=== PATIENT | female | born 1945 | race Caucasian/White ===

== ENCOUNTER 2017-10-13 10:27 | Inpatient (IN) | payer MEDICARE ==
[~2017-10-13] VITALS: Ht 167.6 cm; Wt 71.8 kg
[~2017-10-13 10:27] MED LIST: ALPRAZOLAM1 MG PO; ALPRAZOLAM2 MG PO; AMLODIPINE BESYL5 MG PO; BUSPIRONE HCL10 MG PO; CYANOCOBAL1000 MCG/M IM; DULOXETINE HCL20 MG PO; DULOXETINE HCL30 MG PO; FOLIC ACID0.4 MG PO; FUROSEMIDE40 MG PO; HYDROCHLOROTHIA25 MG PO; HYDROCODONE-IB1 EACH PO; KEFLEX500 MG PO; KLOR-CON 1010 MEQ PO; LEVOFLOXACIN500 MG PO; LEVOTHYROXINE125 MCG PO; MAGNESIUM250 MG PO; MAXZIDE 37.5 MG-1 EA PO; MELATONIN10 M2 PO; OMEPRAZOLE20 MG PO; OXYCODONE HCL15 MG PO; SOMA350 MG PO; SUCRALFATE1 GM PO; TRAZODONE HCL50 MG PO; TRIAMTERENE-HC1 EAC1 PO; VICOPROFEN 2001 EACH PO; VITAMIN D35000 UNI1 PO
[2017-10-13] MEDS ORDERED: CYANOCOBAL1000 MCG/M IM (10:49)
--- NOTE | 2017-10-13 15:08 | NUR ---
PT CAME TO THE UNIT VIA STREACHER AND ONCE IN THE ROOM SHE WAS UP AMBULATING TO THE BATHROOM. PT VOIDED AND BACK TO BED ASSESSMENT COMPLETED. PT C/O PAIN MEDICATED FOR PAIN. PT TRYING TO SLEEP.
--- NOTE | 2017-10-13 15:48 | NUR ---
PT UP TO THE BATHROOM TO VOID, SHE DID NOT USE HER CALL LIGHT. SHE PULLED ALL OF THE MONITORS LEADS OFF. HER CALL LIGHT IS WITHIN IN REACH "I JUST HAD TO USE THE BATHROOMA AND I DID NOT KNOW WHERE I WAS" . THEREFORE CALL WITHIN REACH, AND BED ALARM ON AT THIS TIME. ALL LEADS AND MONITOR PLACED BACK ONTO THE PT AT THIS TIME.
--- NOTE | 2017-10-13 16:39 | NUR ---
PT UP TO THE BEDSIDE COMMODE VOIDED AND BACK TO BED. PT IS ON ROOM AIR AT THIS TIME. WITH A SPO2 96%.CALL LIGHT INPLACE, BED ALARM ON ALSO AT THIS TIME.
--- NOTE | 2017-10-13 17:45 | NUR ---
PT UP TO THE BS COMMODE VOIDED AND BACK TO BED AT THIS TIME. SHE IS SITTING AT THE EDGE OF THE BED EATTING DINNER AT THIS TIME. PT IS AOX3 AND HAS BEEN USING HER CALL LIGHT DIRECTED. SIDE RAILS UP AND BED IN LOW POSITION.
--- NOTE | 2017-10-13 19:30 | NUR ---
PT SHIFT REPORT RECIVED FROM DAY SHIFT RN. PT RESTING IN BED AT THIS TIME AND CALLS APPROPRIATELY. NO OTHER ISSUES AT THIS TIME.
--- NOTE | 2017-10-13 19:30 | NUR ---
PT CALLED TO GET UP TO [place]. PT WAS ABLE TO INDEPENDENTLY STAND AND TRANSFER WITH NO ISSUES. PT VOIDED YELLOW URINE. PT BACK TO BED WITH NO ISSUES.
--- NOTE | 2017-10-13 19:32 | EKG ---
[facility] [address] [facility] [address] [place] [address] Signed Sinus rhythm with First Degree Heart Block Left ventricular hypertrophy with repolarization abnormality Abnormal ECG When compared with ECG of 22-FEB-2017 08:23, Current undetermined rhythm precludes rhythm comparison, needs review Confirmed by YAIMA BARRAZA MD ([id number]) on 10/13/2017 7:32:45 PM Electronically Signed By: YAIMA BARRAZA MD 10/13/17 193 PATIENT NAME: LIVAN KRAMER Electrocardiogram DATE OF : 47 PHYSICIAN: YAIMA BARRAZA MD REPORT #: [id number] REPORT IS CONFIDENTIAL AND NOT TO BE RELEASED WITHOUT AUTHORIZATION
--- NOTE | 2017-10-13 20:00 | NUR ---
PT SHIFT ASSESSMENT COMPLETED. PT RESTING IN BED. BREATH SOUNDS CLEAR. PT IS ON 2L AT THIS TIME WITH SPO2 97-100%. WILL DECREASE OXYGEN TOLERATED. BOWEL TONES ACTIVE. PT GETS FIGITY WITH CORDS. NO OTHER ISSUES AT THIS TIME. WILL CONTINUE TO CLOSELY MONITOR.
--- NOTE | 2017-10-13 20:35 | NUR ---
PT UPDATED ON PLAN OF CARE FOR THIS [place]. PT IS AWARE SHE WILL BE TRANSFERING TO [facility]. PT IS AGREEABLE TO THIS PLAN. PT STATES SHE FEELS MUCH BETTER AND DOES NOT FEEL SHE REALLY NEEDS TO BE IN THE HOSPITAL, BUT PT IS AGREEABLE TO STAYING FOR CONTINUED TREATMENT. EDUCATED PT WHY SHE IS IN [facility]. PT HAS CALL LIGHT IN HAND. WILL CONTINUE TO MONITOR.
--- NOTE | 2017-10-13 21:00 | NUR ---
PT REPORT GIVEN TO [facility] CHARGE NURSE. PT BELONGINGS GATHERED. PT WHEELED OVER IN CHAIR BY TOPLINE BEADING MACHINE TENDER. REMAINING BELONINGS TAKEN OVER TO PT. PT IS NOW IN ROOM 125. PT DENIES ANY OTHER QUESTIONS FOR THIS RN.
--- NOTE | 2017-10-13 22:14 | NUR ---
RECEIVED REPORT FROM MOISÉS HANNAH. PT IS COMFORTABLE IN BED. DROPLET PERCAUTIONS IN PLACE. UNLABORED AND EQUAL BREATHING. PT REPORTS 5/10 PAIN. PAIN MEDICATION GIVEN.
--- NOTE | 2017-10-13 23:38 | NUR ---
PT VERY ANXIOUS OVER AND HER DOG BEING HOME ALONE. HAS "ALZHEIMERS, AND IS INCONTINENT OF BOWELS, HE STARTS HIS DAY AT 2200, GETS READY AND SITS IN FRONT OF COUCH" PT STATES. PT REASSURED THAT SOMEBODY WILL GO AND CHECK ON . CLIENT HAS ALREADY RECEIVED ALPRAZOLAM PRN/ANXIETY CLIENT STATES THAT SHE HAS NOBODY TO CHECK ON OR COME TO STAY WITH HIM PT AGREES TO HAVE [employer] DO A WELFARE CHECK ON HER ----[employer] DISPATCH NOTIFIED VIA [employer] AT [phone] ABOUT DOING A WELFARE CHECK- {BUT PLEASE NOT BREAK THE DOOR-(PTS REQUESTS)} ASSISTANT FRONT DESK MANAGER AND PRIMARY RN NOTIFIED. WILL NOTIFY MD IF PT HAS ANOTHER ANXIETY ATTACK AND IS DIFFICULT TO COMFORT AND CONTINUES TO HAVE INCREASED CONCERSN ABOUT HUSBANDS BEING ALONE AT HOME.
--- NOTE | 2017-10-14 00:20 | NUR ---
PT INFORMED OF [employer] DEPARTMENT WELFARE CHECK " NO LIGHT ON WINDOW, DOG BARKING [employer] OFFICER KNOCKED ON DOOR, NO ANSWER, RED SUV IN DRIVEWAY, WILL DRIVE BY THAT STREET OFTEN TONIGHT". THIS NURSE SPEND CLOSE TO 25 MINTUES TALKING WITH PT AND REASSURING HER AND HELPING HER DECREASE HER ANXIETY, CALMER NOW. WILL CONTINUE TO OBSERVE AND NOTIFY MD IF FURTHER C/O ANXIETY. BED ALARM ON. PT INDEPENDENT.
--- NOTE | 2017-10-14 01:30 | NUR ---
PT REQUESTED IV REMOVAL. GAVE LOTION AND REMOVED SOME EXCESS TAPE. REPORTS PAIN 7/10. STATED PAIN MEDICATION DID NOT HELP WITH PAIN. PT IS ANXIOUS AND REPORTS SHE IS UNABLE TO SLEEP. BED ALARM IS SET. PT IS SETTING BED ALARM FREQUENTLY. ROCKING BACK AND FORTH. VERY ANXIOUS. WILL INFORM HOSPITALIST.
--- NOTE | 2017-10-14 01:34 | NUR ---
PT HAS SET BED ALARM OFF SEVERAL TIMES TONIGHT. PT ANXIOUS, CRYING, TEARFUL, YELLING OUT. PT RATING PAIN AT 7/10, STATES "THAT PILL YOU GAVE ME HAS NOT TOUCHED MY PAIN, MY BACK HURTS SO BAD." PT EDUCATED ON SAFETY AND FALL PREVENTION. GRADUATE RECRUITER ASSSITED PT UP TO BATHROOM TO VOID.
--- NOTE | 2017-10-14 01:41 | NUR ---
PT REPORTS 04/12 PAIN. GAVE NORCO .
--- NOTE | 2017-10-14 02:07 | NUR ---
PATIENT FINALLY ASLEEP. 0200 VS BEING POSTPONED UNTIL PATIENT WAKES UP, RN AGREES.
--- NOTE | 2017-10-14 03:07 | NUR ---
PATIENT CALLED AND ALERTED STAFF THAT SHE WAS SOB. PATIENT PLACED ON 2L VIA NC. PATIENTS VITALS TAKEN AND RECORDED. PATIENTS VITALS STABLE. PATIENT TAUGHT PURSED LIP BREATHING. PATIENT DEMONSTARTED PURSED LIPPED BREATHING. PATIENT DENIES ANY SOB AFTER INTERVENTIONS. PATIENT IS NOW LYING BACK IN BED RESTING. PATIENT IS REQUESTING TO STAY ON 2L VIA NC. PATIENTS OXYGEN SATURATION IS ON 97%. PATIENT DENIES ANY FURTHER NEEDS CALL LIGHT IN REACH.
--- NOTE | 2017-10-14 03:17 | NUR ---
I WAS ALERTED BY KRISTEN HANNAH THAT THE PT WAS COMPLAINING OF SOB. WHEN I ARRIVED TO THE PT'S ROOM SHE WAS SITTING UP IN BED HYPERVENTILATING. HER RESPIRATIONS WERE 28 UPON ENTERING THE ROOM. KRISTEN DEMONSTRATED PURSED LIP BREATHING EXCERSISES. WHILE I TOOK VITAL SIGNS. ALL OTHER VITAL SIGNS WERE NORMAL. WE PLACED THE PT ON 2L. PT O2 SATS WERE @ 94 WHEN WE ENTERED THE ROOM AND WENT UP TO 97 WITH THE O2. THE PT CALMED DOWN AND RESPIRATIONS DECRESSED TO 19. PT IS NOW IN BED TRYING TO GO TO SLEEP.
--- NOTE | 2017-10-14 04:08 | NUR ---
PT APPEARS TO BE SLEEPING. RR IS WNL AND UNLABORED. O2 SAT IS 98% ON CONTINUE PULSE OX. WILL CONTINUE TO MONITOR. CALL LIGHT WITHIN REACH AND BED ALARM ON.
--- NOTE | 2017-10-14 04:47 | NUR ---
PT IV HAS A SCANT AMOUNT OF BLOOD UNDER THE DRESSING. PT WOULD LIKE IV REMOVED. EDUCATED ON NEED. DID NOT REPLACE DRESSING AT THIS TIME DUE TO PT'S ANXIETY. WILL READRESS AT A LATER TIME.
--- NOTE | 2017-10-14 05:44 | NUR ---
PT HAD BUSY NIGHT. UP MOST OF THE NIGHT. NORCO GIVEN X2. VERY ANXIOUS AND CRYING. HYPERVENTILATING. SPELL OF SOB. PAIN NOT UNDER CONTROL. ALPRAZOLAM 0.25MG FOR ANXIETY. PT STATES THIS DOSE IS NOT HIGH ENOUGH. SL IN RIGH AC. SBA. BED ALARM IN PLACE. REGULAR DIET.
--- NOTE | 2017-10-14 10:13 | NUR ---
PT IS RESTING IN BED SAFELY WITH CALL LIGHT IN REACH. PT DID NOT NEED ANYTHING ELSSE AT THE MOMENT
--- NOTE | 2017-10-14 12:17 | NUR ---
pt amb. in roe very well - denies needs -
[2017-10-14] MEDS ORDERED: TAMIFLU75 MG PO (12:44)
== END 2017-10-14 13:30 | disposition home or self-care (01) | DRG 153 ==
LOC: ED 10:27 → CCU 13:30 → MS 21:10
PROVIDERS: ADMIT Internal Medicine
DX: J11.1 Influenza due to unidentified influenza virus with other respiratory manifestations (principal); R65.10 Systemic inflammatory response syndrome (SIRS) of non-infectious origin without acute organ dysfunction; I50.32 Chronic diastolic (congestive) heart failure; F11.20 Opioid dependence, uncomplicated; E83.42 Hypomagnesemia; I11.0 Hypertensive heart disease with heart failure; I48.0 Paroxysmal atrial fibrillation; Z66 Do not resuscitate; E03.9 Hypothyroidism, unspecified; G89.4 Chronic pain syndrome; F41.9 Anxiety disorder, unspecified; I35.0 Nonrheumatic aortic (valve) stenosis; D51.0 Vitamin B12 deficiency anemia due to intrinsic factor deficiency; Z85.79 Personal history of other malignant neoplasms of lymphoid, hematopoietic and related tissues
CPT/HCPCS: 36415; 71045; 80053; 81001; 83605; 83735; 83880; 84484; 85025; 87040; 87502; 93005; 93010; J0696; J1650; J2405; J3475; J7030

== ENCOUNTER 2017-11-11 11:59 | Emergency (ER) | payer MEDICARE ==
[~2017-11-11] VITALS: Ht 167.6 cm; Wt 84.3 kg
--- OUTSIDE RECORDS SUMMARY | ~2017-11-11 | XMS | Clinical Summary ---
Demographics + + + | Address | [address] | | | [place] [address] | + + + | Home Phone | | + + + | Preferred Language | Unknown | + + + | Marital Status | | + + + | Church Affiliation | ADV | + + + | Race | White | + + + | Ethnic Group | Not or | + + + Author + + + | Author | [facility] | + + + | Organization | [facility] | + + + | Address | Unknown | + + + | Phone | Unavailable | + + + Support +------+ + + + +-------+ | Name | Relationship | Address | Phone | +------+ + + + +-------+ ECON | [address] | | [place] | [phone] | +------+ + + + +-------+ Care Team Providers + +------+ + | Care Cement Finisher Helper Name | Role | Phone | + +------+ + | Elmer Amador MD | PP | Unavailable | + +------+ + Source Comments JOSE is fully live on both EpicCare Ambulatory and EpicCare InPatient.[facility] Allergies + + + + + + [...] | mouth three times | | | 5/20 | | e | | | daily. | | | 16 | | | + + +-------+---------+------+------+-------+ | traZODone 50 mg | Take 1 tablet by | | | 10/2 | | Activ | | oral tablet | mouth two times | | | 9/20 | | e | | | daily. [...] | | | | (FLU SHOT) | 7 | | | + + + + + Results Not on filefrom Last 3 Months
--- OUTSIDE RECORDS SUMMARY | ~2017-11-11 | XMS | Clinical Summary ---
Demographics + + + | Address | [address] | | | [place] [address] | + + + | Home Phone | | + + + | Preferred Language | Unknown | + + + | Marital Status | | + + + | Buddhist Affiliation | ADV | + + + [...] [address] | | [place] | [phone] | +------+ + + + +-------+ Care Team Providers + +------+ + | Care Supply Chain Director Name | Role | Phone | + +------+ + | Elmer Amador MD | PP | Unavailable | + +------+ + Source Comments JOSE is fully live on both EpicCare Ambulatory and EpicCare InPatient.[facility] Allergies + + + + + [...]
[~2017-11-11 11:59] MED LIST changes: +TAMIFLU75 MG PO
[2017-11-11] MEDS ORDERED: LEVOTHYROXINE125 MCG PO (12:23)
[2017-11-11] MEDS ORDERED: DULOXETINE HCL30 MG PO (12:24)
--- NOTE | 2017-11-13 17:47 | EKG ---
[facility] [address] [facility] [place] [address] Signed Sinus rhythm with 1st degree AV block with premature atrial complexes Moderate voltage criteria for LVH, may be normal variant Septal infarct , old Borderline ECG When compared with ECG of 13-OCT-2017 10:45, Previous ECG has undetermined rhythm, needs review Confirmed by YAIMA BARRAZA MD ([id number]) on 11/13/2017 5:47:27 PM Electronically Signed By: YAIMA BARRAZA MD 11/13/17 1747 PATIENT NAME: LIVAN KRAMER Electrocardiogram DATE OF : 47 PHYSICIAN: YAIMA BARRAZA MD REPORT #: [id number] REPORT IS CONFIDENTIAL AND NOT TO BE RELEASED WITHOUT AUTHORIZATION
== END 2017-11-11 14:42 | disposition home or self-care (01) ==
LOC: ED 11:59
DX: R53.83 Other fatigue (principal); K21.9 Gastro-esophageal reflux disease without esophagitis; Z87.01 Personal history of pneumonia (recurrent); Z90.49 Acquired absence of other specified parts of digestive tract; Z90.710 Acquired absence of both cervix and uterus; Z88.8 Allergy status to other drugs, medicaments and biological substances; Z88.1 Allergy status to other antibiotic agents; Z79.899 Other long term (current) drug therapy
CPT/HCPCS: 71045; 80053; 81001; 85025; 93005; 93010; 99284

== ENCOUNTER 2018-01-02 11:21 | Emergency (ER) | payer MEDICARE ==
[~2018-01-02] VITALS: Ht 167.6 cm; Wt 84.3 kg
--- OUTSIDE RECORDS SUMMARY | ~2018-01-02 | XMS | Clinical Summary ---
Demographics + + + | Address | [address] | | | [place] [address] | + + + | Home Phone | | + + + | Preferred Language | Unknown | + + + | Marital Status | | + + + | Christian Affiliation | ADV | + + + | Race | White | + + + | Ethnic Group | Not or | + + + Author + + + | Author | [facility] | + + + | Organization | [facility] | + + + | Address | Unknown | + + + | Phone | Unavailable | + + + Support + + + + + | Name | Relationship | Address | Phone | + + + + + | IAM KRAMER | ECON | [address] | | | | | [place] | | | | | [phone] | | + + + + + Care Team Providers + +------+ + | Care Sanforizing Machine Operator Name | Role | Phone | + +------+ + | Elmer Amador MD | PP | Unavailable | + +------+ + Source Comments JOSE is fully live on both EpicCare Ambulatory and EpicCare InPatient.[facility] Allergies + + + + + + | Active Allergy | Reactions | Severity | Noted | Comments | | | | | Date | | + + + + + + | Duloxetine | Unknown | | 08/11/20 | | | | | | 16 | | + + + + + + | Gabapentin | Unknown | | 08/11/20 | | | | | | 16 | | + + + + + + | Levofloxacin | Cardiac Arrest | High | 08/11/20 | Stroke symptoms | | | | | 16 | | + + + + + + Current Medications + + +-------+---------+------+------+-------+ | Prescription | Sig. | Disp. | Refills | Star | End | Statu | | | | | | t | Date | s | | | | | | Date | | | + + +-------+---------+------+------+-------+ | levothyroxine 125 | Take 1 tablet by | | | | | Activ | | mcg oral tablet | mouth. For five | | | | | e | | | days, none on the | | | | | | | | weekends | | | | | | + + +-------+---------+------+------+-------+ | busPIRone 10 mg | Take 1 tablet by | | 0 | 10/0 | | Activ | | oral tablet | mouth three times | | | /20 | | e | | | daily. | | | 16 | | | + + +-------+---------+------+------+-------+ | traZODone 50 mg | Take 1 tablet by | | | 10/2 | | Activ | | oral tablet | mouth two times | | | 20 | | e | | | daily. | | | 16 | | | + + +-------+---------+------+------+-------+ | | Take 1-2 tablets by | | | | | Activ | | HYDROcodone-ibuprofe | mouth every four | | | | | e | | n (VICOPROFEN) | hours as needed. | | | | | | | 7.5-200 mg oral | | | | | | | | tablet | | | | | | | + + +-------+---------+------+------+-------+ | ALPRAZolam 2 mg | Take 1-2 tablets by | | 0 | 10/2 | | Activ | | oral tablet | mouth once daily at | | | 7/20 | | e | | | bedtime as needed. | | | 16 | | | + + +-------+---------+------+------+-------+ | Cholecalciferol, | Take 1 tablet by | | | | | Activ | | Vitamin D3, 3,000 | mouth once daily. | | | | | e | | unit oral tablet | | | | | | | + + +-------+---------+------+------+-------+ | cyanocobalamin | Inject 1 mL into the | | | | | Activ | | 1,000 mcg/mL | muscle (IM) every | | | | | e | | injection solution | seven days. | | | | | | + + +-------+---------+------+------+-------+ Active Problems + + + | Problem | Noted Date | + + + | Spondylosis of lumbar region without myelopathy or radiculopathy | 08/11/2016 | + + + Family History + + +------+ + | Medical History | Relation | Name | Comments | + + +------+ + | Blood Disease | | | Anemia | + + +------+ + + +------+---------+ + | Relation | Name | Status | Comments | + +------+---------+ + | Father | | Unknown | | + +------+---------+ + | Mother | | Unknown | | + +------+---------+ + Social History + +-------+ +--------+------+ | Tobacco Use | Types | Packs/Day | Years | Date | | | | | Used | | + +-------+ +--------+------+ | Never Smoker | | | | | + +-------+ +--------+------+ + + +---------+ + | Alcohol Use | Drinks/We | oz/Week | Comments | | | ek | | | + + +---------+ + | Yes | 0 | 0.0 | rarely | | | Standard | | | | | drinks or | | | | | | | | | | equivalen | | | | | t | | | + + +---------+ + + + + | Sex Assigned at | Date Recorded | | | | + + + | Not on file | | + + + Last Filed Vital Signs + + + + | Vital Sign | Reading | Time Taken | + + + + | Blood Pressure | 126/71 | 08/11/2016 10:50 AM PST | + + + + | Pulse | 72 | 08/11/2016 10:50 AM PST | + + + + | Temperature | - | - | + + + + | Respiratory Rate | 14 | 08/11/2016 10:50 AM PST | + + + + | Oxygen Saturation | 98% | 08/11/2016 10:50 AM PST | + + + + | Inhaled Oxygen | - | - | | Concentration | | | + + + + | Weight | 87 kg (191 lb 11.2 | 08/11/2016 10:50 AM PST | | | oz) | | + + + + | Height | 167.6 cm (5' 6") | 08/11/2016 10:50 AM PST | + + + + | Body Mass Index | 30.94 | 08/11/2016 10:50 AM PST | + + + + Plan of Treatment + + + + + | Health Maintenance | Due Date | Last Done | Comments | + + + + + | INFLUENZA VACCINE | | | | | (FLU SHOT) | 8 | | | + + + + + Results Not on filefrom Last 3 Months
--- OUTSIDE RECORDS SUMMARY | ~2018-01-02 | XMS | Clinical Summary ---
Demographics + + + | Address | [address] | | | [place] [address] | + + + | Home Phone | | + + + | Preferred Language | Unknown | + + + | Marital Status | | + + + | Confucianism Affiliation | ADV | + + + [...] [place] | | | | | [phone] | | + + + + + Care Team Providers + +------+ + | Care President And Chief Operating Officer Name | Role | Phone | + +------+ + | Elmer Amador MD | PP | Unavailable | + +------+ + Source Comments JOSE is fully live on both EpicCare Ambulatory and EpicCare InPatient.[facility] Allergies + + + + + + [...]
== END 2018-01-02 12:02 | disposition home or self-care (01) ==
LOC: ED 11:21
PROC: 0HQ0XZZ Repair Scalp Skin, External Approach (ICD-10-PCS; principal; 2018-01-02)
DX: R05 Cough (principal); S01.01XA Laceration without foreign body of scalp, initial encounter; W18.30XA Fall on same level, unspecified, initial encounter; K21.9 Gastro-esophageal reflux disease without esophagitis; Z88.8 Allergy status to other drugs, medicaments and biological substances; Z88.1 Allergy status to other antibiotic agents; Z79.899 Other long term (current) drug therapy
CPT/HCPCS: 12002; 99282

== ENCOUNTER 2019-11-08 16:10 | Emergency (ER) | payer MEDICARE ==
[~2019-11-08] VITALS: Ht 162.6 cm; Wt 82.0 kg
--- OUTSIDE RECORDS SUMMARY | 2019-11-08 16:12 | XMS ---
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 EKavon VISIT COUNT (12 MO.) Evaristo Bhatia TOTAL 1 NOTE: Visits indicate total known visits. ED/UCC VISIT TRACKING (12 MO.) 11/08/2019 16:11 [facility] [place] TYPE: Emergency COMPLAINT: - CHEST PAIN INPATIENT VISIT TRACKING (12 MO.) 09/08/2019 08:52 [facility] TYPE: Cardiology DIAGNOSES: - Personal history of endo, nutritional and metabolic disease - Generalized anxiety disorder - Precordial pain - Chronic fatigue, unspecified - Deficiency of other specified B group vitamins - Body mass index (BMI) 30.0-30.9, adult - Pure hypercholesterolemia, unspecified - Fibromyalgia - Other general symptoms and signs - Hypergammaglobulinemia, unspecified - Presence of prosthetic heart valve - Hyperglycemia, unspecified [email or web address]
[2019-11-08] MEDS ORDERED: FUROSEMIDE40 MG PO (16:16)
[2019-11-08] MEDS ORDERED: BUSPIRONE HCL30 MG PO (16:16)
[2019-11-08] MEDS ORDERED: TRAZODONE HCL150 MG PO (16:17)
[2019-11-08] MEDS ORDERED: AMLODIPINE BESYL5 MG PO (16:17)
--- NOTE | 2019-11-09 07:43 | EKG ---
[facility] [address] [facility] [place] [address] Signed Normal sinus rhythm Cannot rule out Anterior infarct , age undetermined ST \T\ T wave abnormality, consider lateral ischemia Abnormal ECG When compared with ECG of 11-NOV-2017 12:36, premature atrial complexes are no longer present MO interval has decreased Nonspecific T wave abnormality now evident in Inferior leads Confirmed by LISSETT FLOYD MD ([id number]) on 11/09/2019 7:42:47 AM Electronically Signed By: LISSETT FLOYD MD 11/09/19 0743 PATIENT NAME: LIVAN KRAMER Electrocardiogram DATE OF : 47 PHYSICIAN: LISSETT FLOYD MD REPORT #: [id number] REPORT IS CONFIDENTIAL AND NOT TO BE RELEASED WITHOUT AUTHORIZATION
== END 2019-11-08 19:20 | disposition short-term general hospital (02) ==
LOC: ED 16:10
DX: R07.2 Precordial pain (principal); Z88.8 Allergy status to other drugs, medicaments and biological substances; Z88.1 Allergy status to other antibiotic agents; Z79.899 Other long term (current) drug therapy
CPT/HCPCS: 71045; 80053; 83880; 84484; 85025; 93005; 93010; 99285-25

== ENCOUNTER 2021-10-08 14:39 | Emergency (ER) | payer OTHER, MEDICARE ==
[~2021-10-08] VITALS: Ht 162.6 cm; Wt 82.0 kg
[~2021-10-08 14:39] MED LIST changes: +BUSPIRONE HCL30 MG PO; +TRAZODONE HCL150 MG PO
--- OUTSIDE RECORDS SUMMARY | 2021-10-08 14:42 | XMS ---
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 Jaden has no Care Guidelines for this patient. Sonya VISIT COUNT (12 MO.) 1 FALGUNI Bhatia TOTAL 1 NOTE: Visits indicate total known visits. ED/C VISIT TRACKING (12 MO.) 10/08/2021 14:40 [facility] [place] TYPE: Emergency COMPLAINT: - FALL INPATIENT VISIT TRACKING (12 MO.) No inpatient visits to display in this time frame [email or web address]
[2021-10-08] MEDS ORDERED: DILAUDID2 MG PO (17:37)
== END 2021-10-08 18:38 | disposition home or self-care (01) ==
LOC: ED 14:39
DX: S42.211A Unspecified displaced fracture of surgical neck of right humerus, initial encounter for closed fracture (principal); W00.0XXA Fall on same level due to ice and snow, initial encounter; K21.9 Gastro-esophageal reflux disease without esophagitis; Z88.8 Allergy status to other drugs, medicaments and biological substances; Z88.1 Allergy status to other antibiotic agents; Z79.899 Other long term (current) drug therapy
CPT/HCPCS: 73030; 73200; 96372; 99284-25; J1170